=== PATIENT | female | born 1985 | race Hispanic/Latino ===

== ENCOUNTER 2017-10-31 11:50 | Observation (INO) | payer MEDICAID, OTHER ==
[~2017-10-31] VITALS: Ht 177.8 cm; Wt 74.8 kg
[2017-10-31] MEDS ORDERED: SODIUM CHLORIDE 0.9% 1000ML 1,000 ML IV SCH (12:15)
[2017-10-31 13:07] LABS: MEAN CORPUSCULAR HEMOGLOBIN 20.4 pg (27.0-33.0); MEAN CORPUSCULAR HGB CONC 32.2 g/dL (32.0-36.0); MEAN CORPUSCULAR VOLUME 63.5 fL (79-99); NUCLEATED RED BLOOD CELLS 0.1 % (0.0-0.19); PLATELET COUNT (AUTO) 328 K/uL (130-400); RED BLOOD CELL COUNT(AUTO) 3.31 MIL/uL (4.00-5.50); RED CELL DISTRIBUTION WIDTH 18.9 % (11.0-15.5); WHITE BLOOD COUNT (AUTO) 10.4 K/uL (4.8-10.8)
[2017-10-31 14:07] VITALS: BP 114/53
[2017-10-31] MEDS ORDERED: PREN-154 PO (14:25)
[2017-10-31] MEDS ORDERED: FERR-82 PO (14:25)
[2017-10-31 16:51] LABS: APPEARANCE,URINE Clear (CLEAR); BILIRUBIN,URINE Negative (NEGATIVE); COLOR,URINE Yellow (YELLOW); GLUCOSE, URINE (UA) 250 mg/dL (NEGATIVE); KETONES,URINE Negative (NEGATIVE); LEUKOCYTE ESTERASE ,URINE Negative (NEGATIVE); NITRATE,URINE Negative (NEGATIVE); OCCULT BLOOD,URINE Negative (NEGATIVE); PH,URINE 6.5 (5.0-8.0); PROTEIN,URINE Negative (NEGATIVE)
[2017-10-31 17:11] LABS: BACTERIA,URINE Few /HPF (None Seen); RBC,URINE None Seen /HPF (0-1); WBC,URINE 0-1 /HPF (0-1)
[2017-10-31 19:30] VITALS: BP 114/57
[2017-10-31] MEDS ORDERED: FLU VACC QS2017-18 36MOS UP/PF 60 MCG/0.5 ML ML IM ONE (20:00)
[2017-10-31 20:10] VITALS: BP 121/67
[2017-10-31 22:10] LABS: HEMATOCRIT 27.6 % (36-48)
[2017-11-01 07:30] LABS: RAPID PLASMA REAGIN NONREACTIVE (NONREACTIVE)
[2017-11-01 08:25] LABS: HEPATITIS Bs ANTIGEN SCREEN P Negative (Negative)
== END 2017-10-31 22:45 | disposition home or self-care (01) ==
LOC: WSH 11:50
PROVIDERS: ADMIT Obstetrics & Gynecology; ATTEND Obstetrics & Gynecology
DX: O99.012 Anemia complicating pregnancy, second trimester (principal); Z3A.26 26 weeks gestation of pregnancy; Z23 Encounter for immunization
CPT/HCPCS: 36415; 36430; 81001; 85027; 86592; 86701; 86850; 86900; 86901; 86922 ×2; 87340; 87390; G0008; G0378 ×12; J7030; P9016 ×2; Q2038; 90471